=== PATIENT | female | born 1970 | race Caucasian/White ===

== ENCOUNTER 2017-11-12 06:54 | Emergency (ER) | payer MEDICAID ==
[~2017-11-12] VITALS: Ht 167.6 cm; Wt 110.0 kg
[2017-11-12] MEDS ORDERED: MAALOX/HYOSCYAMINE/LIDOCAINE 45 ML BTL PO ONE (07:30)
[2017-11-12] MEDS ORDERED: MAALOX/HYOSCYAMINE/LIDOCAINE 45 ML BTL ONE (07:33)
[2017-11-12 07:38] LABS: BASOPHILS # (AUTO) 0.04 x10^3/uL (0-0.1); BASOPHILS % (AUTO) 0 % (0-1); EOSINOPHILS # (AUTO) 0.05 x10^3/uL (0-0.4); EOSINOPHILS % (AUTO) 0 % (1-7); LYMPHOCYTES # (AUTO) 1.59 x10^3/uL (1-3.4); LYMPHOCYTES % (AUTO) 13 % (22-44); MD NO; MEAN CORPUSCULAR HEMOGLOBIN 31.3 pg (27.0-34.8); MEAN CORPUSCULAR HGB CONC 33.5 g/dL (32.4-35.8); MEAN CORPUSCULAR VOLUME 93.5 fL (80-100); MEAN PLATELET VOLUME 8.1 fL (7.4-10.4); MONOCYTES # (AUTO) 0.43 x10^3/uL (0.2-0.8); MONOCYTES % (AUTO) 4 % (2-9); NEUTROPHILS # (AUTO) 10.18 x10^3/uL (1.8-6.8); NEUTROPHILS % (AUTO) 83 % (42-75); PLATELET COUNT 259 x10^3/uL (130-400); RED BLOOD COUNT 4.42 x10^6/uL (3.82-5.3)
[2017-11-12 07:51] LABS: ALBUMIN 3.4 g/dL (3.4-5.0); ANION GAP 7 mmol/L (5-15); CALCIUM 8.9 mg/dL (8.5-10.1); CHLORIDE 104 mmol/L (98-107); CREATININE 0.74 mg/dL (0.55-1.02)
[2017-11-12 07:55] LABS: TROPONIN I < 0.015 ng/mL (0.000-0.045)
[2017-11-12 08:07] VITALS: BP 115/70
== END 2017-11-12 08:39 | disposition home or self-care (01) ==
LOC: ED 08:35
DX: K21.0 Gastro-esophageal reflux disease with esophagitis (principal); I10 Essential (primary) hypertension; E11.9 Type 2 diabetes mellitus without complications
CPT/HCPCS: 36415; 71046; 80048; 82040; 84484; 85025; 93005; 99285

== ENCOUNTER 2018-02-03 07:03 | Emergency (ER) | payer MEDICAID ==
[~2018-02-03] VITALS: Ht 167.6 cm; Wt 115.0 kg
[2018-02-03] MEDS ORDERED: SODIUM CHLORIDE FLUSH 10ML SYR IVF ONE (07:30)
[2018-02-03] MEDS ORDERED: ASPIRIN 81 MG TABLET CHEW PO ONE (07:30)
[2018-02-03] MEDS ORDERED: MORPHINE SULFATE 4 MG/ML, 1ML IVPush PRN (07:30)
[2018-02-03] MEDS ORDERED: ONDANSETRON ODT 4 MG PO ONE (07:30)
[2018-02-03] MEDS ORDERED: ONDANSETRON ODT 4 MG ONE (07:40)
[2018-02-03] MEDS ORDERED: ASPIRIN 81 MG TABLET CHEW ONE (07:41)
[2018-02-03] MEDS ORDERED: MORPHINE SULFATE 4 MG/ML, 1ML ONE (07:41)
[2018-02-03 07:46] LABS: BASOPHILS # (AUTO) 0.03 x10^3/uL (0-0.1); BASOPHILS % (AUTO) 0 % (0-1); EOSINOPHILS # (AUTO) 0.07 x10^3/uL (0-0.4); EOSINOPHILS % (AUTO) 1 % (1-7); LYMPHOCYTES # (AUTO) 1.71 x10^3/uL (1-3.4); LYMPHOCYTES % (AUTO) 18 % (22-44); MD NO; MEAN CORPUSCULAR HEMOGLOBIN 31.4 pg (27.0-34.8); MEAN CORPUSCULAR VOLUME 92.4 fL (80-100); MEAN PLATELET VOLUME 7.8 fL (7.4-10.4); MONOCYTES # (AUTO) 0.35 x10^3/uL (0.2-0.8); MONOCYTES % (AUTO) 4 % (2-9); NEUTROPHILS # (AUTO) 7.23 x10^3/uL (1.8-6.8); NEUTROPHILS % (AUTO) 77 % (42-75); PLATELET COUNT 248 x10^3/uL (130-400)
[2018-02-03 07:59] LABS: ALANINE AMINOTRANSFERASE 27 U/L (12-78); ALBUMIN 3.4 g/dL (3.4-5.0); ANION GAP 12 mmol/L (5-15); CALCIUM 8.9 mg/dL (8.5-10.1); CHLORIDE 102 mmol/L (98-107); CREATININE 0.85 mg/dL (0.55-1.02)
[2018-02-03 08:04] LABS: ALKALINE PHOSPHATASE 87 U/L (45-117); BILIRUBIN,TOTAL 0.7 mg/dL (0.2-1.0); TOTAL PROTEIN 7.9 g/dL (6.4-8.2); TROPONIN I < 0.015 ng/mL (0.000-0.045)
[2018-02-03] MEDS ORDERED: MAALOX/HYOSCYAMINE/LIDOCAINE 45 ML BTL PO ONE (08:30)
[2018-02-03] MEDS ORDERED: MAALOX/HYOSCYAMINE/LIDOCAINE 45 ML BTL ONE (08:58)
[2018-02-03] MEDS ORDERED: FAMOTIDINE 20 MG/2 ML ONE (08:58)
[2018-02-03] MEDS ORDERED: METOCLOPRAMIDE 5 MG/ML, 2ML ONE (08:58)
[2018-02-03] MEDS ORDERED: METOCLOPRAMIDE 5 MG/ML, 2ML IVPush ONE (09:00)
[2018-02-03] MEDS ORDERED: FAMOTIDINE 20 MG/2 ML IVPush ONE (09:00)
[2018-02-03] MEDS ORDERED: AMLO10TA6 PO (09:20)
[2018-02-03] MEDS ORDERED: TRAZ150T62 PO (09:20)
[2018-02-03 09:52] VITALS: BP 119/64
== END 2018-02-03 09:55 | disposition home or self-care (01) ==
LOC: ED 09:49
DX: K29.00 Acute gastritis without bleeding (principal); E11.9 Type 2 diabetes mellitus without complications; I10 Essential (primary) hypertension; K21.9 Gastro-esophageal reflux disease without esophagitis; Z79.4 Long term (current) use of insulin; Z79.899 Other long term (current) drug therapy
CPT/HCPCS: 36415; 71045; 80053; 83690; 83880; 84484; 85025; 85379; 86677; 93005; 93971; 96374; 96375; 99285; J2765; Q0162; S0028

== ENCOUNTER 2018-08-04 15:42 | Emergency (ER) | payer MEDICAID ==
[~2018-08-04] VITALS: Ht 167.6 cm; Wt 120.0 kg
[~2018-08-04 15:42] MED LIST: AMLO10TA8 PO; TRAZ150T62 PO
[2018-08-04 15:47] VITALS: BP 165/84
[2018-08-04] MEDS ORDERED: ALBUTEROL/IPRATROPIUM 2.5MG/0.5MG, 3 ML NPPB ONE (16:00)
--- NOTE | 2018-08-04 16:19 | NUR ---
FROM LOBBY TO ROOM T2
--- NOTE | 2018-08-04 16:38 | NUR ---
Assumed care of patient. 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 NAD. Lungs clear throughout. Took albuterol prior to ED arrival. Prednisone admin. Family member at bedside. Will continue to monitor.
--- NOTE | 2018-08-04 17:55 | NUR ---
Patient/Caregiver given discharge instructions and they have confirmed that they understand the instructions. Patient ambulatory with steady gait.
== END 2018-08-04 17:56 | disposition home or self-care (01) ==
LOC: ED 17:15
DX: J45.901 Unspecified asthma with (acute) exacerbation (principal); I10 Essential (primary) hypertension; E11.9 Type 2 diabetes mellitus without complications; K21.9 Gastro-esophageal reflux disease without esophagitis; Z88.1 Allergy status to other antibiotic agents
CPT/HCPCS: 71045; 93005; 99283

== ENCOUNTER 2018-09-13 08:00 | Emergency (ER) | payer MEDICAID ==
[~2018-09-13] VITALS: Ht 170.2 cm; Wt 115.0 kg
[2018-09-13 08:02] VITALS: BP 151/86
[2018-09-13] MEDS ORDERED: HYDROcodone/APAP 5/325 TABLET ONE (08:50)
[2018-09-13] MEDS ORDERED: HYDROcodone/APAP 5/325 TABLET PO ONE (09:00)
--- NOTE | 2018-09-13 09:59 | NUR ---
Patient/Caregiver given discharge instructions and they have confirmed that they understand the instructions. Patient ambulatory with steady gait.
== END 2018-09-13 10:00 | disposition home or self-care (01) ==
LOC: ED 09:30
DX: M72.2 Plantar fascial fibromatosis (principal); K21.9 Gastro-esophageal reflux disease without esophagitis; E11.9 Type 2 diabetes mellitus without complications; I10 Essential (primary) hypertension; J45.909 Unspecified asthma, uncomplicated; G89.29 Other chronic pain; M54.9 Dorsalgia, unspecified
CPT/HCPCS: 99283

== ENCOUNTER 2018-11-23 10:27 | Emergency (ER) | payer MEDICAID ==
[~2018-11-23] VITALS: Ht 167.6 cm; Wt 118.6 kg
[2018-11-23 10:32] VITALS: BP 134/86
[2018-11-23] MEDS ORDERED: METHOCARBAMOL 750 MG TABLET ONE (11:16)
[2018-11-23] MEDS ORDERED: KETOROLAC 30 MG/1 ML ONE (11:17)
[2018-11-23] MEDS ORDERED: METHOCARBAMOL 750 MG TABLET PO ONE (11:30)
[2018-11-23] MEDS ORDERED: KETOROLAC 30 MG/1 ML IM ONE (11:30)
== END 2018-11-23 12:06 | disposition home or self-care (01) ==
LOC: ED 11:42
DX: M54.42 Lumbago with sciatica, left side (principal); E11.9 Type 2 diabetes mellitus without complications; I10 Essential (primary) hypertension; K21.9 Gastro-esophageal reflux disease without esophagitis; J45.909 Unspecified asthma, uncomplicated
CPT/HCPCS: 72110; 96372; 99283; J1885; J7512

== ENCOUNTER 2019-03-16 04:40 | Emergency (ER) | payer MEDICAID ==
[~2019-03-16] VITALS: Ht 167.6 cm; Wt 117.0 kg
[2019-03-16] MEDS ORDERED: METF500T17 PO (05:06)
[2019-03-16] MEDS ORDERED: INSU100I34 SQ-INSULIN (05:06)
--- NOTE | 2019-03-16 05:06 | NUR ---
PT STATED "I'M HAVING A LOT OF ISSUES WITH MY PRIVATE AREA". PT C/O BURNING DURING URINATION, +NAUSEA. PROVIDED PT WITH GOWN, MONITORS IN PLACE, SIDERAILS UP X2, CALL LIGHT WITHIN REACH. PA AT BEDSIDE FOR EVAL
--- NOTE | 2019-03-16 05:25 | NUR ---
URINE SAMPLE SENT
[2019-03-16 05:46] LABS: BASOPHILS # (AUTO) 0.02 x10^3/uL (0-0.1); BASOPHILS % (AUTO) 0 % (0-1); EOSINOPHILS # (AUTO) 0.06 x10^3/uL (0-0.4); EOSINOPHILS % (AUTO) 1 % (1-7); LYMPHOCYTES # (AUTO) 1.66 x10^3/uL (1-3.4); LYMPHOCYTES % (AUTO) 20 % (22-44); MD NO; MEAN CORPUSCULAR HEMOGLOBIN 32.2 pg (27.0-34.8); MEAN CORPUSCULAR HGB CONC 33.4 g/dL (32.4-35.8); MEAN CORPUSCULAR VOLUME 96.4 fL (80-100); MEAN PLATELET VOLUME 8.4 fL (7.4-10.4); MONOCYTES # (AUTO) 0.36 x10^3/uL (0.2-0.8); MONOCYTES % (AUTO) 4 % (2-9); NEUTROPHILS # (AUTO) 6.23 x10^3/uL (1.8-6.8); NEUTROPHILS % (AUTO) 75 % (42-75); PLATELET COUNT 249 x10^3/uL (130-400); RED BLOOD COUNT 4.41 x10^6/uL (3.82-5.3); RED CELL DISTRIBUTION WIDTH 13.1 % (9.6-15.2)
[2019-03-16 05:48] LABS: MICROSCOPIC INDICATED
[2019-03-16 05:51] LABS: CLUE CELLS NONE SEEN (NONE SEEN); WET PREP WBCS FEW (FEW)
[2019-03-16 05:53] LABS: ALBUMIN 3.7 g/dL (3.4-5.0); ANION GAP 6 mmol/L (5-15); CALCIUM 8.6 mg/dL (8.5-10.1); CHLORIDE 102 mmol/L (98-107); CREATININE 0.69 mg/dL (0.55-1.02)
[2019-03-16 05:59] LABS: CULTURE INDICATED? YES
[2019-03-16] MEDS ORDERED: FLUCONAZOLE 100 MG TABLET PO ONE (06:30)
[2019-03-16] MEDS ORDERED: FLUCONAZOLE 100 MG TABLET ONE (06:30)
--- NOTE | 2019-03-16 06:33 | NUR ---
PT MEDICATED PER MAR
[2019-03-16 06:34] VITALS: BP 132/77
== END 2019-03-16 06:55 | disposition home or self-care (01) ==
LOC: ED 05:13
DX: N30.00 Acute cystitis without hematuria (principal); B37.3 Candidiasis of vulva and vagina; E11.65 Type 2 diabetes mellitus with hyperglycemia; K21.9 Gastro-esophageal reflux disease without esophagitis; I10 Essential (primary) hypertension; Z90.49 Acquired absence of other specified parts of digestive tract; Z90.710 Acquired absence of both cervix and uterus
CPT/HCPCS: 36415; 80048; 81001; 82040; 85025; 87086; 87210; 87491; 87591; 87808; 99283

== ENCOUNTER 2019-04-25 09:30 | Emergency (ER) | payer MEDICAID ==
[~2019-04-25] VITALS: Ht 167.6 cm; Wt 116.9 kg
[~2019-04-25 09:30] MED LIST changes: +INSU100I34 SQ-INSULIN; +METF500T17 PO
[2019-04-25 09:45] VITALS: BP 134/88
[2019-04-25] MEDS ORDERED: KETOROLAC 30 MG/1 ML ONE (10:22)
[2019-04-25] MEDS ORDERED: OXYcodone/APAP 5/325MG TABLET ONE (10:22)
[2019-04-25] MEDS ORDERED: DIAZEPAM 5 MG TABLET ONE (10:22)
[2019-04-25] MEDS ORDERED: DIAZEPAM 5 MG TABLET PO ONE (10:30)
[2019-04-25] MEDS ORDERED: HYDROcodone/APAP 5/325 TABLET PO ONE (10:30)
[2019-04-25] MEDS ORDERED: OXYcodone/APAP 5/325MG TABLET PO ONE (10:30)
[2019-04-25] MEDS ORDERED: KETOROLAC 30 MG/1 ML IM ONE (10:30)
--- NOTE | 2019-04-25 10:34 | NUR ---
Patient not given [facility] even though appears charted that way.
== END 2019-04-25 11:37 | disposition home or self-care (01) ==
LOC: ED 10:28
DX: M54.41 Lumbago with sciatica, right side (principal); J45.909 Unspecified asthma, uncomplicated; I10 Essential (primary) hypertension; K21.9 Gastro-esophageal reflux disease without esophagitis; E11.65 Type 2 diabetes mellitus with hyperglycemia; Z90.49 Acquired absence of other specified parts of digestive tract; Z90.710 Acquired absence of both cervix and uterus
CPT/HCPCS: 96372; 99284; J1885

== ENCOUNTER 2019-06-24 23:06 | Emergency (ER) | payer MEDICAID ==
[~2019-06-24] VITALS: Ht 167.6 cm; Wt 114.4 kg
[2019-06-24 23:13] VITALS: BP 142/71
[2019-06-25] MEDS ORDERED: HYDROcodone/APAP 5/325 TABLET PO ONE
[2019-06-25] MEDS ORDERED: KETOROLAC 30 MG/1 ML IM ONE
[2019-06-25] MEDS ORDERED: DIAZEPAM 5 MG TABLET ONE
[2019-06-25] MEDS ORDERED: KETOROLAC 30 MG/1 ML ONE
[2019-06-25] MEDS ORDERED: DIAZEPAM 5 MG TABLET PO ONE
[2019-06-25] MEDS ORDERED: HYDROcodone/APAP 5/325 TABLET ONE (00:01)
--- NOTE | 2019-06-25 00:07 | NUR ---
PATIENT C/O BILATERAL CHRONIC HIP PAIN X10 YEARS WITH "I GET THESE FLARE UPS OF HIGH PAIN", THIS CURRENT "FLARE UP" LASTING 4 DAYS RATED 10/10. PATIENT HAS PAIN DOCTOR THAT SHE CURRENTLY SEES AND IS "DUE FOR AN INJECTION IN MY HIP". \\ PATIENT MEDICATED PER EMAR, TOLERATED WELL. AMBULATORY WITH STEADY GAIT TO RESTROOM
--- NOTE | 2019-06-25 01:05 | NUR ---
PAIN DOWN TO 7/10 FROM 10/10
--- NOTE | 2019-06-25 01:29 | NUR ---
TASK RN: DC EDUCATION PROVIDED, PT DEMONSTRATES UNDERSTANDING. PT AMBULATED STEADILY TO DC WITH RN AND FRIEND. FRIEND TO TRANSPORT PT HOME.
== END 2019-06-25 01:32 | disposition home or self-care (01) ==
LOC: ED 06-25 00:53
DX: S39.012A Strain of muscle, fascia and tendon of lower back, initial encounter (principal); M25.552 Pain in left hip; M25.551 Pain in right hip; Z72.9 Problem related to lifestyle, unspecified; I10 Essential (primary) hypertension; E11.9 Type 2 diabetes mellitus without complications; K21.9 Gastro-esophageal reflux disease without esophagitis; Z90.710 Acquired absence of both cervix and uterus; Z90.49 Acquired absence of other specified parts of digestive tract; X58.XXXA Exposure to other specified factors, initial encounter; Y93.89 Activity, other specified; Y92.89 Other specified places as the place of occurrence of the external cause; Y99.8 Other external cause status
CPT/HCPCS: 96372; 99283; J1885

== ENCOUNTER 2019-08-01 03:20 | Emergency (ER) | payer MEDICAID ==
[~2019-08-01] VITALS: Ht 185.4 cm; Wt 60.0 kg
[2019-08-01] MEDS ORDERED: ALBUTEROL/IPRATROPIUM 2.5MG/0.5MG, 3 ML NPPB ONE (04:00)
[2019-08-01] MEDS ORDERED: ALBUTEROL SULFATE 2.5 MG/3 ML ONE (04:05)
[2019-08-01] MEDS ORDERED: DEXAMETHASONE 4 MG/ML, 1ML ONE (05:18)
[2019-08-01 05:28] VITALS: BP 164/64
[2019-08-01] MEDS ORDERED: DEXAMETHASONE 4 MG TABLET PO ONE (05:30)
== END 2019-08-01 05:30 | disposition home or self-care (01) ==
LOC: ED 03:43
DX: J20.9 Acute bronchitis, unspecified (principal); B34.9 Viral infection, unspecified; I10 Essential (primary) hypertension; E11.9 Type 2 diabetes mellitus without complications; J45.909 Unspecified asthma, uncomplicated; Z90.49 Acquired absence of other specified parts of digestive tract; Z90.710 Acquired absence of both cervix and uterus
CPT/HCPCS: 71045; 99283

== ENCOUNTER 2019-09-24 16:25 | Emergency (ER) | payer MEDICAID ==
[~2019-09-24] VITALS: Ht 167.6 cm; Wt 115.6 kg
[2019-09-24 16:31] VITALS: BP 140/80
--- NOTE | 2019-09-24 18:32 | NUR ---
SHAREHOLDER CALLED FOR ROOM, NO ANSWER
--- NOTE | 2019-09-24 18:57 | NUR ---
COUNTER INSTALLER: PT LWBS
== END 2019-09-24 18:59 | disposition left against medical advice (07) ==
LOC: ED 18:45
DX: M25.572 Pain in left ankle and joints of left foot (principal); Z53.21 Procedure and treatment not carried out due to patient leaving prior to being seen by health care provider

== ENCOUNTER 2020-04-23 09:39 | Emergency (ER) | payer MEDICAID ==
[~2020-04-23] VITALS: Ht 167.6 cm; Wt 115.9 kg
[~2020-04-23 09:39] MED LIST changes: +AMLO-211 PO; -AMLO10TA8 PO
[2020-04-23 10:06] LABS: HCG UR SG 1.004 (1.003-1.030); MICROSCOPIC NOT IND
--- NOTE | 2020-04-23 11:00 | NUR ---
TO ROOM AT THIS TIME
[2020-04-23] MEDS ORDERED: SODIUM CHLORIDE 0.9% 1,000ML IVBOLUS ONE (11:30)
[2020-04-23] MEDS ORDERED: SODIUM CHLORIDE FLUSH 10ML SYR IVF ONE (11:30)
[2020-04-23] MEDS ORDERED: ONDANSETRON 2MG/ML, 2ML IVPush ONE (11:30)
[2020-04-23] MEDS ORDERED: MORPHINE SULFATE 4 MG/ML, 1ML IVPush PRN (11:30)
[2020-04-23] MEDS ORDERED: MORPHINE SULFATE 4 MG/ML, 1ML ONE (12:06)
[2020-04-23] MEDS ORDERED: ONDANSETRON 2MG/ML, 2ML ONE (12:06)
[2020-04-23 12:12] LABS: BASOPHILS % (AUTO) 1 % (0-1); EOSINOPHILS % (AUTO) 0 % (1-7); LYMPHOCYTES % (AUTO) 13 % (22-44); MEAN CORPUSCULAR HEMOGLOBIN 31.5 pg (27.0-34.8); MEAN CORPUSCULAR HGB CONC 33.5 g/dL (32.4-35.8); MEAN PLATELET VOLUME 8.5 fL (7.4-10.4); MONOCYTES % (AUTO) 3 % (2-9); NEUTROPHILS % (AUTO) 83 % (42-75); PLATELET COUNT 294 x10^3/uL (130-400); RED BLOOD COUNT 4.59 x10^6/uL (3.82-5.3); RED CELL DISTRIBUTION WIDTH 14.2 % (9.6-15.2)
--- NOTE | 2020-04-23 12:15 | NUR ---
UP TO BR STEADY GAIT
[2020-04-23 12:24] LABS: ALANINE AMINOTRANSFERASE 31 U/L (12-78); ALBUMIN 3.8 g/dL (3.4-5.0); ANION GAP 6 mmol/L (5-15); CALCIUM 9.4 mg/dL (8.5-10.1); CHLORIDE 105 mmol/L (98-107); CREATININE 0.79 mg/dL (0.55-1.02)
[2020-04-23 12:26] LABS: ALKALINE PHOSPHATASE 89 U/L (45-117); BILIRUBIN,TOTAL 1.2 mg/dL (0.2-1.0); TOTAL PROTEIN 8.4 g/dL (6.4-8.2)
[2020-04-23 12:27] LABS: MD SCAN
--- NOTE | 2020-04-23 12:58 | NUR ---
RECEIVED REPORT FROM RANI MASON. ASSUMING CARE AT THIS TIME.
--- NOTE | 2020-04-23 12:59 | NUR ---
ALL RESULTS ARE BACK AT THIS TIME. CHART UP FOR RECHECK.
[2020-04-23 13:38] VITALS: BP 105/54
== END 2020-04-23 13:48 | disposition home or self-care (01) ==
LOC: ED 11:24
DX: R10.12 Left upper quadrant pain (principal); R11.2 Nausea with vomiting, unspecified; R19.7 Diarrhea, unspecified; E11.9 Type 2 diabetes mellitus without complications; Z90.710 Acquired absence of both cervix and uterus
CPT/HCPCS: 36415; 74176; 80053; 81003; 81025; 83690; 85025; 96361; 96374; 96375; 99284; J2270; J2405; J7030

== ENCOUNTER 2020-12-28 13:05 | Emergency (ER) | payer MEDICAID ==
[~2020-12-28] VITALS: Ht 167.6 cm; Wt 117.4 kg
--- NOTE | 2020-12-28 13:37 | NUR ---
PT RESTING IN POSITION OF COMFORT IN [facility]. AWAITING EVAL BY ED MD. PT'S SPOUSE AT BEDSIDE. CALL LIGHT W/IN REACH. PT INSTRUCTED ON USE, VERBALIZED UNDERSTANDING. DENIES NEEDS AT THIS TIME. UA SPECIMEN SENT TO LAB.
--- NOTE | 2020-12-28 14:08 | NUR ---
BEDSIDE REPORT TO ISABELLA SANDHU.
[2020-12-28 14:13] LABS: MICROSCOPIC NOT IND
[2020-12-28 14:26] LABS: BASOPHILS % (AUTO) 1 % (0-1); EOSINOPHILS % (AUTO) 1 % (1-7); LYMPHOCYTES % (AUTO) 24 % (22-44); MEAN CORPUSCULAR HEMOGLOBIN 32.4 pg (27.0-34.8); MEAN PLATELET VOLUME 8.3 fL (7.4-10.4); MONOCYTES % (AUTO) 6 % (2-9); NEUTROPHILS % (AUTO) 68 % (42-75); PLATELET COUNT 207 x10^3/uL (130-400); RED BLOOD COUNT 4.48 x10^6/uL (3.82-5.3); RED CELL DISTRIBUTION WIDTH 13.6 % (9.6-15.2)
[2020-12-28] MEDS ORDERED: SODIUM CHLORIDE FLUSH 10ML SYR IVF ONE (14:30)
[2020-12-28] MEDS ORDERED: ONDANSETRON 2MG/ML, 2ML IVPush ONE (14:30)
[2020-12-28] MEDS ORDERED: HYDROmorphone 1 MG/ML, 1ML INJ IV ONE (14:30)
[2020-12-28 14:39] LABS: ALANINE AMINOTRANSFERASE 35 U/L (12-78); ALBUMIN 3.3 g/dL (3.4-5.0); ANION GAP 5 mmol/L (5-15); CALCIUM 8.9 mg/dL (8.5-10.1); CHLORIDE 102 mmol/L (98-107)
[2020-12-28 14:42] LABS: ALKALINE PHOSPHATASE 93 U/L (45-117); BILIRUBIN,TOTAL 0.8 mg/dL (0.2-1.0); CREATININE 0.78 mg/dL (0.55-1.02); TOTAL PROTEIN 7.7 g/dL (6.4-8.2)
[2020-12-28] MEDS ORDERED: HYDROmorphone 2 MG/ML, 1ML ONE (14:48)
[2020-12-28] MEDS ORDERED: ONDANSETRON 2MG/ML, 2ML ONE (14:48)
--- NOTE | 2020-12-28 15:28 | NUR ---
Pt to and from imaging.
[2020-12-28 16:18] VITALS: BP 136/93
== END 2020-12-28 16:26 | disposition home or self-care (01) ==
LOC: ED 16:00
DX: M54.6 Pain in thoracic spine (principal); R10.32 Left lower quadrant pain; R11.0 Nausea; R19.7 Diarrhea, unspecified; R93.5 Abnormal findings on diagnostic imaging of other abdominal regions, including retroperitoneum; E11.9 Type 2 diabetes mellitus without complications
CPT/HCPCS: 36415; 74176; 80053; 81003; 85025; 96374; 96375; 99284; J1170; J2405